=== PATIENT | male | born 1955 | race Caucasian/White ===

== ENCOUNTER 2016-11-30 07:05 | Day surgery (SDC) | payer BC ==
[~2016-11-30 07:05] MED LIST: Sodium Chloride 0.9% 10 ML Syringe FLUSH PRN
[2016-11-30] MEDS ORDERED: fentaNYL 250 MCG/5 ML SDV ONE ×2 (07:35→07:45)
[2016-11-30] MEDS ORDERED: fentaNYL 100 MCG/2 ML SDV ONE ×2 (07:35→07:45)
[2016-11-30] MEDS ORDERED: Midazolam 1 MG/ML 2 ML SDV ONE ×2 (07:35→07:45)
[2016-11-30] MEDS ORDERED: Propofol 200 MG/20 ML SDV ONE ×2 (07:36→07:45)
[2016-11-30] MEDS ORDERED: Succinylcholine 200 MG/10 ML MDV ONE (07:45)
[2016-11-30] MEDS ORDERED: ePHEDrine 50 MG/ML SDV ONE (07:45)
[2016-11-30] MEDS ORDERED: Rocuronium 100 MG/10 ML MDV ONE (07:45)
[2016-11-30] MEDS ORDERED: Dexamethasone 10 MG/ML SDV ONE (07:45)
[2016-11-30] MEDS ORDERED: Lactated Ringers 1,000 ML IV SCH ×2 (07:46→09:00)
[2016-11-30] MEDS ORDERED: ceFAZolin 1 GM Vial ONE ×2 (08:15→08:46)
--- NOTE | 2016-11-30 08:15 | PCM.PN ---
- General Info Date of Service: 11/30/16 - Review of Systems Systems Review Comment:: 61-year-old male presents today for left inguinal hernia repair. He is medically stable to proceed with no significant change in his health status since his recent history and physical which is reviewed. The site of the hernia is confirmed with the patient and marked. I again reviewed the proposed procedure and anticipated post op recovery expectations and instructions. He agrees to proceed accepting risks. - Patient Data Vitals - Most Recent: Last Vital Signs Temp 98.3 F 11/30/16 07:46 Pulse 77 11/30/16 07:46 Resp 20 11/30/16 07:46 BP 143/77 H 11/30/16 07:46 Pulse Ox 98 11/30/16 07:46 Weight - Most Recent: 97.522 kg Med Orders - Current: Current Medications Lactated Ringer's (Ringers, Lactated) 1,000 mls @ 125 mls/hr IV ASDIRECTED KATIE Last Admin: 11/30/16 07:40 Dose: 125 mls/hr Sodium Chloride (Saline Flush) 10 ml FLUSH ASDIRECTED PRN PRN Reason: Keep Vein Open Discontinued Medications Fentanyl (Sublimaze) Confirm Administered Dose 100 mcg .ROUTE .STK-MED ONE Stop: 11/30/16 07:36 Fentanyl (Sublimaze) Confirm Administered Dose 250 mcg .ROUTE .STK-MED ONE Stop: 11/30/16 07:36 Lactated Ringer's (Ringers, Lactated) 1,000 mls @ 125 mls/hr IV ASDIRECTED KATIE Midazolam HCl (Versed 1 Mg/Ml) Confirm Administered Dose 2 mg .ROUTE .STK-MED ONE Stop: 11/30/16 07:36 Propofol (Diprivan 20 Ml) Confirm Administered Dose 200 mg .ROUTE .STK-MED ONE Stop: 11/30/16 07:37 - Problem List Review Problem List Initiated/Reviewed/Updated: Yes - Assessment Assessment:: Left inguinal hernia - Plan Plan:: Left inguinal hernia repair with mesh
[2016-11-30] MEDS ORDERED: Bupivacaine 0.25%/EPINEPHrine 1:200,000 30 ML SDV INFILT ONE (09:29)
--- NOTE | 2016-11-30 10:13 | PCM.OPNOTE ---
- General Post-Op/Procedure Note Date of Surgery/Procedure: 11/30/16 Operative Procedure(s): Left Inguinal Hernia Repair with Mesh Findings: Moderate sized left indirect inguinal hernia Pre Op Diagnosis: Left inguinal hernia Post-Op Diagnosis: Same Anesthesia Technique: General ET Tube Primary Surgeon: Francisco Beverly Pathology: Left inguinal hernia sac and lipoma Output, Urine Amount: 0 EBL in mLs: 20 Complications: None Condition: Good Free Text/Narrative:: Intake & Output 11/29/16 11/30/16 11/30/16 22:59 06:59 14:59 Intake Total 1400 Balance 1400
[2016-11-30] MEDS ORDERED: fentaNYL 100 MCG/2 ML SDV IVPUSH PRN (10:53)
--- NOTE | 2016-11-30 14:17 | OR ---
Date of Procedure: 11/30/2016 PREOPERATIVE DIAGNOSIS: Left inguinal hernia. POSTOPERATIVE DIAGNOSIS: Left indirect inguinal hernia. OPERATION PERFORMED: Left inguinal hernia repair with mesh. INDICATIONS FOR SURGERY: This 61-year-old male has developed a bulge in his left groin, which has been noticeable and increasing over the last few months. Physical findings are consistent with a left inguinal hernia and he comes for elective repair. FINDINGS: The patient has a moderate-sized indirect left inguinal hernia. The hernia sac is empty. There is a moderate-sized associated cord lipoma that the cord structures otherwise appear satisfactory. DESCRIPTION OF PROCEDURE: The patient was taken to the operating room. He was given general endotracheal anesthesia and the groin area was sterilely prepped with Betadine and draped. A linear left groin incision was made. This was carried down to the external oblique fascia, which was incised opening the external ring. The ilioinguinal nerve was identified and preserved. The spermatic cord was isolated and explored and the hernia sac was identified. It was carefully from the other cord structures down to the level of the internal ring. The hernia sac was opened, found to be empty, and then it was rotated on its own axis and suture-ligated at the level of the internal ring with a 2-0 Vicryl. A reinforcing 2-0 Vicryl tie was placed and the sac is amputated above these ties. Additional exploration of the spermatic cord shows a moderate-sized cord lipoma, this was isolated from the remaining cord structures down to the level of the internal ring and it was amputated above clamps at this level. Ties of 2-0 Vicryl were used to show good hemostasis. The floor of the inguinal canal was then reinforced by securing a large size keyhole-shaped piece of polypropylene mesh in position. The inferior edge of the mesh was secured to the Clay's ligament, medial to the femoral vessels, and the shelving portion of the inguinal ligament anterior to these vessels with interrupted 0 Prolene. The superior edge of the mesh was secured to the internal oblique fascia near its fusion with the external oblique fascia, also with interrupted 0 Prolene. The spermatic cord and ilioinguinal nerve were passed through the keyhole defect and the tails of the mesh are secured lateral to the cord with 0 Prolene sutures recreating the internal ring. This ring was trimmed such that it would admit one finger tip alongside the spermatic cord. The tails of the mesh were trimmed and laid into the space between the internal and external oblique fascias lateral to the internal ring. This created a secure and reinforced repair of the inguinal hernia. The wound was irrigated with Ancef and saline solution, which had also been used to soak the mesh prior to its placement. The external oblique fascia was reapproximated with running 2 - 0 Vicryl recreating the external ring. The wound was infiltrated with Marcaine and then closure was completed by approximating the subcutaneous tissue with interrupted 4-0 Vicryl and the skin with a running 4-0 Vicryl subcuticular stitch, Steri-Strips, and benzoin. Antibiotic ointment and sterile dressing were placed. The patient was then awakened, extubated, and taken from the operating room in satisfactory condition. ESTIMATED BLOOD LOSS: 20 mL. COMPLICATIONS: None. PROGNOSIS: Good. HILARIA Beverly MD /[id number]
[2016-11-30 15:21] VITALS: BP 113/62
== END 2016-11-30 13:58 | disposition home or self-care (01) ==
LOC: LL.SDS 07:05
PROVIDERS: ATTEND Surgery
DX: K40.90 Unilateral inguinal hernia, without obstruction or gangrene, not specified as recurrent (principal)
CPT/HCPCS: 49505; J0690; J3010; J7050; J7120; A4216; C1781; J0330; J1100; J2250; J2704

== ENCOUNTER 2025-02-24 15:01 | Emergency (ER) | payer OTHER, MEDICARE | END 2025-02-24 15:49 | disposition home or self-care (01) | LOC: MERGE 15:01 → LL.ED 15:01 | DX: S13.4XXA Sprain of ligaments of cervical spine, initial encounter (principal); V89.2XXA Person injured in unspecified motor-vehicle accident, traffic, initial encounter | CPT/HCPCS: 72125; 99283; 99284 ==